=== PATIENT | male | born 1965 | race Caucasian/White ===

== ENCOUNTER 2017-07-23 18:25 | Emergency (ER) | payer OTHER ==
[2017-07-23] MEDS ORDERED: Sodium Chloride 0.9% 1,000 ML ONE (18:54)
[2017-07-23] MEDS ORDERED: Fentanyl 100 MCG/2 ML VIAL ONE (19:11)
[2017-07-23 19:20] LABS: #Basophils 0.1 thou/uL (0.0-0.2); #Eosinphils 0.1 thou/uL (0.0-0.7); #Lymphocytes 1.8 thou/uL (1.20-3.40); #Monocytes 0.6 thou/uL (0.11-0.59); #Neutrophils 2.7 thou/uL (1.40-6.50); %Basophils 2.5 % (0.0-1.0); %Eosinophils 1.4 % (0.0-10.0); %Lymphocytes 34.1 % (21.0-51.0); %Monocytes 10.6 % (0.0-10.0); %Neutrophils 51.4 % (42.0-75.0); Hemoglobin 13.4 g/dL (14.0-18.0); Mean Corpuscular HGB CONC 32.9 g/dL (32.0-36.0); Mean Corpuscular Hemoglobin 32.7 pg (27.0-31.0); Mean Corpuscular Volume 99.5 fl (80.0-94.0); Mean Platelet Volume 9.9 fL (7.4-10.4); Platelet Count 154 thou/uL (130-400); RBC Distribution Width 13.3 % (11.5-14.5); White Blood Cell (WBC) Count 5.2 thou/uL (4.8-10.8)
[2017-07-23 19:29] LABS: CKMB 1.2 ng/mL (0-6.6); Troponin I Less than 0.010 ng/mL (< 0.028)
[2017-07-23 19:30] LABS: ALT (SGPT) 9 U/L (8-55); AST (SGOT) 13 U/L (5-34); Albumin 3.8 g/dL (3.5-5.0); Alkaline Phosphatase 69 U/L (40-150); Anion Gap 11 mmol/L (10-20); BUN (Urea Nitrogen) 10 mg/dL (8.4-25.7); Bilirubin, Total 0.2 mg/dL (0.2-1.2); Calc. Creatinine Clearance 0 mL/min (70-130); Calcium 8.6 mg/dL (7.8-10.44); Carbon Dioxide 25 mmol/L (22-29); Chloride 104 mmol/L (98-107); Estimated GFR-MDRD Greater than 90; Globulin 2.6 g/dL (2.4-3.5); Glucose 104 mg/dL (70-105); Potassium 4.2 mmol/L (3.5-5.1); Protein, Total 6.4 g/dL (6.0-8.3); Sodium 136 mmol/L (136-145)
--- NOTE | 2017-07-23 19:52 | RAD ---
RADIOGRAPH CHEST 2 VIEWS: 07/23/17 HISTORY: 50-year-old male with dyspnea. FINDINGS: There is hyperinflation of the lungs, consistent with COPD. There is no evidence of air space densi ty, pneumothorax, or pulmonary edema. There is no cardiomegaly or pleural effusion. IMPRESSION: 1) No acute cardiopulmonary findings. 2) Emphysema. [email or web address] [] POS: [facility]
[2017-07-23] MEDS ORDERED: Doxycycline 100 MG CAP ONE (20:06)
[2017-07-23] MEDS ORDERED: predniSONE 20 MG TAB ONE (20:06)
== END 2017-07-23 20:18 | disposition home or self-care (01) ==
LOC: NAV ERS 18:25
DX: J44.1 Chronic obstructive pulmonary disease with (acute) exacerbation (principal); I69.359 Hemiplegia and hemiparesis following cerebral infarction affecting unspecified side; I10 Essential (primary) hypertension; F41.9 Anxiety disorder, unspecified; F31.9 Bipolar disorder, unspecified; F25.9 Schizoaffective disorder, unspecified; F17.210 Nicotine dependence, cigarettes, uncomplicated; Z79.899 Other long term (current) drug therapy
CPT/HCPCS: 71020; 80053; 82553; 83605; 83880; 84484; 85025; 93005; 94640; 94760; 96361; 96374; J3010; J7050; J7506; J7620

== ENCOUNTER → 2017-08-25 | Emergency (ER) | payer OTHER ==
[~2017-08-25] MED LIST: AMOXicillin 250 MG CAP ONE; Acetaminophen/Codeine 30-300mg Tablet ONE
== END ==
LOC: NAV ERS 09:43
DX: K02.9 Dental caries, unspecified (principal); I10 Essential (primary) hypertension; G40.909 Epilepsy, unspecified, not intractable, without status epilepticus; J44.9 Chronic obstructive pulmonary disease, unspecified; F17.210 Nicotine dependence, cigarettes, uncomplicated; Z79.899 Other long term (current) drug therapy
CPT/HCPCS: 99282

== ENCOUNTER 2017-10-27 13:36 | Emergency (ER) | payer OTHER ==
[2017-10-27] MEDS ORDERED: Ibuprofen 200 MG TAB ONE (13:59)
== END 2017-10-27 14:10 | disposition home or self-care (01) ==
LOC: NAV ERS 13:36
DX: K02.9 Dental caries, unspecified (principal); I10 Essential (primary) hypertension; J44.9 Chronic obstructive pulmonary disease, unspecified; G40.909 Epilepsy, unspecified, not intractable, without status epilepticus; F17.210 Nicotine dependence, cigarettes, uncomplicated; Z79.899 Other long term (current) drug therapy
CPT/HCPCS: 99282

== ENCOUNTER 2018-01-19 16:14 | Emergency (ER) | payer OTHER ==
[2018-01-19] MEDS ORDERED: methylPREDNISolone Sod Succ/PF 125 MG/2 ML VIAL ONE (16:59)
--- NOTE | 2018-01-19 17:04 | RAD ---
SINGLE VIEW OF THE CHEST: 01/19/18 COMPARISON: 12/22/17 HISTORY: Shortness of breath since Wednesday. Chest pain. FINDINGS: Single view of the chest shows a normal sized cardiomediastinal silhouette. There is no evidence of c onsolidation, mass, or pleural effusion. The bones are unremarkable. IMPRESSION: No evidence of acute cardiopulmonary disease. POS: [facility]
== END 2018-01-19 17:25 | disposition home or self-care (01) ==
LOC: NAV ERS 16:14
DX: J44.1 Chronic obstructive pulmonary disease with (acute) exacerbation (principal); I10 Essential (primary) hypertension; G40.909 Epilepsy, unspecified, not intractable, without status epilepticus; F17.210 Nicotine dependence, cigarettes, uncomplicated; J44.9 Chronic obstructive pulmonary disease, unspecified; Z79.891 Long term (current) use of opiate analgesic; Z79.899 Other long term (current) drug therapy
CPT/HCPCS: 71045; 96372; J2930; J7620

== ENCOUNTER 2018-02-17 12:09 | Emergency (ER) | payer OTHER ==
[2018-02-17 12:45] LABS: #Basophils 0.1 thou/uL (0.0-0.2); #Eosinphils 0.3 thou/uL (0.0-0.7); #Lymphocytes 1.6 thou/uL (1.20-3.40); #Monocytes 0.4 thou/uL (0.11-0.59); #Neutrophils 1.6 thou/uL (1.40-6.50); %Basophils 1.7 % (0.0-1.0); %Eosinophils 8.4 % (0.0-10.0); %Lymphocytes 39.2 % (21.0-51.0); %Monocytes 10.3 % (0.0-10.0); %Neutrophils 40.4 % (42.0-75.0); Hemoglobin 13.8 g/dL (14.0-18.0); Mean Corpuscular HGB CONC 32.6 g/dL (32.0-36.0); Mean Platelet Volume 7.8 fL (7.4-10.4); Platelet Count 211 thou/uL (130-400); RBC Distribution Width 13.3 % (11.5-14.5); Red Blood Cell (RBC) Count 4.44 mill/uL (4.70-6.10)
[2018-02-17 12:58] LABS: ALT (SGPT) 14 U/L (8-55); AST (SGOT) 13 U/L (5-34); Albumin 3.8 g/dL (3.5-5.0); Alkaline Phosphatase 88 U/L (40-150); Anion Gap 15 mmol/L (10-20); BUN (Urea Nitrogen) 7 mg/dL (8.4-25.7); Bilirubin, Total 0.3 mg/dL (0.2-1.2); Calc. Creatinine Clearance 0 mL/min (70-130); Calcium 8.7 mg/dL (7.8-10.44); Carbon Dioxide 24 mmol/L (22-29); Chloride 102 mmol/L (98-107); Estimated GFR-MDRD 89; Globulin 2.5 g/dL (2.4-3.5); Glucose 119 mg/dL (70-105); Potassium 4.6 mmol/L (3.5-5.1); Protein, Total 6.3 g/dL (6.0-8.3); Sodium 136 mmol/L (136-145)
[2018-02-17] MEDS ORDERED: methylPREDNISolone Sod Succ/PF 125 MG/2 ML VIAL ONE (13:16)
--- NOTE | 2018-02-17 13:20 | RAD ---
CHEST 1 VIEW: HISTORY: Dyspnea. Cough. COMPARISON: 01/19/18. FINDINGS: Cardiac silhouette is magnified by projection. Lungs are hyperinflated. Mediastinum midline with ao rtic calcification. Calcified granulomata are consistent with healed granulomatous disease. No loba r consolidation or evidence of pneumothorax. IMPRESSION: 1. Chronic obstructive pulmonary disease. 2. Atherosclerosis. POS: [facility]
== END 2018-02-17 13:33 | disposition home or self-care (01) ==
LOC: NAV ERS 12:09
DX: J44.1 Chronic obstructive pulmonary disease with (acute) exacerbation (principal); I10 Essential (primary) hypertension; F17.210 Nicotine dependence, cigarettes, uncomplicated; Z79.899 Other long term (current) drug therapy
CPT/HCPCS: 36415; 71045; 80053; 83880; 85025; 94640; 94760; 96374; J2930; J7620

== ENCOUNTER 2018-03-19 09:17 | Emergency (ER) | payer OTHER | END 2018-03-19 10:03 | disposition home or self-care (01) | LOC: NAV ERS 09:17 | DX: J44.9 Chronic obstructive pulmonary disease, unspecified (principal); I10 Essential (primary) hypertension; G40.909 Epilepsy, unspecified, not intractable, without status epilepticus; F17.210 Nicotine dependence, cigarettes, uncomplicated; Z79.899 Other long term (current) drug therapy | CPT/HCPCS: 99283 ==

== ENCOUNTER 2018-03-30 11:29 | Emergency (ER) | payer OTHER ==
[2018-03-30] MEDS ORDERED: predniSONE 20 MG TAB ONE (11:48)
[2018-03-30 12:23] LABS: #Basophils 0.1 thou/uL (0.0-0.2); #Lymphocytes 0.9 thou/uL (1.20-3.40); #Monocytes 0.6 thou/uL (0.11-0.59); #Neutrophils 2.5 thou/uL (1.40-6.50); %Basophils 1.8 % (0.0-1.0); %Lymphocytes 22.6 % (21.0-51.0); %Monocytes 14.1 % (0.0-10.0); %Neutrophils 61.5 % (42.0-75.0); Hemoglobin 12.7 g/dL (14.0-18.0); Mean Corpuscular HGB CONC 33.3 g/dL (32.0-36.0); Mean Corpuscular Hemoglobin 31.6 pg (27.0-31.0); Mean Corpuscular Volume 94.9 fL (78.0-98.0); Mean Platelet Volume 7.5 fL (7.4-10.4); Platelet Count 192 thou/uL (130-400); RBC Distribution Width 13.5 % (11.5-14.5); Red Blood Cell (RBC) Count 4.03 mill/uL (4.70-6.10)
--- NOTE | 2018-03-30 12:24 | RAD ---
SINGLE VIEW CHEST: Date: 03/30/18 COMPARISON: 02/17/18. HISTORY: Chest pain and shortness of breath. FINDINGS: Single view of the chest shows a normal sized cardiomediastinal silhouette. There is no evidence of c onsolidation, mass, or pleural effusion. The bones are unremarkable. IMPRESSION: No evidence of acute cardiopulmonary disease. POS: [facility]
[2018-03-30 12:38] LABS: ALT (SGPT) 14 U/L (8-55); AST (SGOT) 15 U/L (5-34); Albumin 3.6 g/dL (3.5-5.0); Alkaline Phosphatase 65 U/L (40-150); Anion Gap 12 mmol/L (10-20); BUN (Urea Nitrogen) 8 mg/dL (8.4-25.7); Bilirubin, Total 0.1 mg/dL (0.2-1.2); Calc. Creatinine Clearance 0 mL/min (70-130); Calcium 8.4 mg/dL (7.8-10.44); Carbon Dioxide 29 mmol/L (22-29); Chloride 103 mmol/L (98-107); Estimated GFR-MDRD Greater than 90; Globulin 2.2 g/dL (2.4-3.5); Glucose 106 mg/dL (70-105); Potassium 4.2 mmol/L (3.5-5.1); Protein, Total 5.8 g/dL (6.0-8.3); Sodium 140 mmol/L (136-145)
[2018-03-30 12:39] LABS: Troponin I Less than 0.010 ng/mL (< 0.028)
[2018-03-30] MEDS ORDERED: Azithromycin 250 MG TAB ONE (13:01)
== END 2018-03-30 13:12 | disposition home or self-care (01) ==
LOC: NAV ERS 11:29
DX: J44.1 Chronic obstructive pulmonary disease with (acute) exacerbation (principal); I10 Essential (primary) hypertension; G40.909 Epilepsy, unspecified, not intractable, without status epilepticus; F17.210 Nicotine dependence, cigarettes, uncomplicated; Z79.899 Other long term (current) drug therapy
CPT/HCPCS: 71045; 80053; 83880; 84484; 85025; 93005; J7506; J7620

== ENCOUNTER 2018-04-21 07:53 | Emergency (ER) | payer OTHER ==
[2018-04-21 08:30] LABS: #Basophils 0.1 thou/uL (0.0-0.2); #Eosinphils 0.1 thou/uL (0.0-0.7); #Lymphocytes 1.5 thou/uL (1.20-3.40); #Monocytes 0.5 thou/uL (0.11-0.59); #Neutrophils 1.9 thou/uL (1.40-6.50); %Basophils 2.3 % (0.0-1.0); %Eosinophils 3.4 % (0.0-10.0); %Lymphocytes 35.9 % (21.0-51.0); %Monocytes 11.2 % (0.0-10.0); %Neutrophils 47.2 % (42.0-75.0); Hemoglobin 12.7 g/dL (14.0-18.0); Mean Corpuscular HGB CONC 32.2 g/dL (32.0-36.0); Mean Corpuscular Hemoglobin 31.2 pg (27.0-31.0); Mean Corpuscular Volume 97.1 fL (78.0-98.0); Platelet Count 251 thou/uL (130-400); RBC Distribution Width 13.8 % (11.5-14.5); Red Blood Cell (RBC) Count 4.07 mill/uL (4.70-6.10); White Blood Cell (WBC) Count 4.1 thou/uL (4.8-10.8)
[2018-04-21] MEDS ORDERED: methylPREDNISolone Sod Succ/PF 125 MG/2 ML VIAL ONE (08:33)
[2018-04-21 08:51] LABS: Anion Gap 12 mmol/L (10-20); BUN (Urea Nitrogen) 6 mg/dL (8.4-25.7); Calc. Creatinine Clearance 0 mL/min (70-130); Carbon Dioxide 28 mmol/L (22-29); Chloride 102 mmol/L (98-107); Estimated GFR-MDRD Greater than 90; Glucose 90 mg/dL (70-105); Potassium 4.3 mmol/L (3.5-5.1); Sodium 138 mmol/L (136-145)
[2018-04-21 08:56] LABS: CKMB 1.2 ng/mL (0-6.6); Troponin I Less than 0.010 ng/mL (< 0.028)
--- NOTE | 2018-04-21 10:04 | RAD ---
PA AND LATERAL CHEST: HISTORY: Shortness of breath, productive cough. FINDINGS: Heart size is within normal limits. There are atherosclerotic changes of the aorta. Radiographic ch anges of COPD. No acute process. IMPRESSION: Chronic obstructive pulmonary disease. No active intrathoracic disease. POS: [facility]
== END 2018-04-21 10:10 | disposition home or self-care (01) ==
LOC: NAV ERS 07:53
DX: J44.1 Chronic obstructive pulmonary disease with (acute) exacerbation (principal); I10 Essential (primary) hypertension; F17.210 Nicotine dependence, cigarettes, uncomplicated; Z79.899 Other long term (current) drug therapy
CPT/HCPCS: 71046; 80048; 82553; 83880; 84484; 85025; 93005; 94640; 94760; 96374; J2930; J7620

== ENCOUNTER 2018-05-14 07:29 | Emergency (ER) | payer OTHER ==
[2018-05-14] MEDS ORDERED: methylPREDNISolone Acetate 40 mg/ml Vial ONE (07:58)
[2018-05-14] MEDS ORDERED: Cephalexin 250 MG CAP ONE (07:58)
== END 2018-05-14 08:17 | disposition home or self-care (01) ==
LOC: NAV ERS 07:29
DX: J44.9 Chronic obstructive pulmonary disease, unspecified (principal); K04.7 Periapical abscess without sinus; K02.9 Dental caries, unspecified; I10 Essential (primary) hypertension; G40.909 Epilepsy, unspecified, not intractable, without status epilepticus; F17.210 Nicotine dependence, cigarettes, uncomplicated; Z79.899 Other long term (current) drug therapy
CPT/HCPCS: 96372; J1030; J7620

== ENCOUNTER 2018-06-18 04:27 | Emergency (ER) | payer OTHER ==
[2018-06-18] MEDS ORDERED: predniSONE 20 MG TAB ONE (04:40)
== END 2018-06-18 05:16 | disposition home or self-care (01) ==
LOC: NAV ERS 04:27
DX: J44.1 Chronic obstructive pulmonary disease with (acute) exacerbation (principal); I10 Essential (primary) hypertension; G40.909 Epilepsy, unspecified, not intractable, without status epilepticus; F17.210 Nicotine dependence, cigarettes, uncomplicated; Z79.899 Other long term (current) drug therapy
CPT/HCPCS: 94640; 94760; J7506; J7620

== ENCOUNTER 2018-06-19 21:29 | Emergency (ER) | payer OTHER ==
[2018-06-19] MEDS ORDERED: predniSONE 10 MG TAB ONE (22:07)
[2018-06-19] MEDS ORDERED: methylPREDNISolone Sod Succ/PF 125 MG/2 ML VIAL ONE (22:28)
== END 2018-06-19 23:05 | disposition home or self-care (01) ==
LOC: NAV ERS 21:29
DX: J44.1 Chronic obstructive pulmonary disease with (acute) exacerbation (principal); I10 Essential (primary) hypertension; G40.909 Epilepsy, unspecified, not intractable, without status epilepticus; F17.210 Nicotine dependence, cigarettes, uncomplicated; Z79.899 Other long term (current) drug therapy
CPT/HCPCS: 93005; 94760; 96374; 96375; J2270; J2930; J7512

== ENCOUNTER 2018-08-14 12:15 | Emergency (ER) | payer OTHER ==
[2018-08-14 13:43] LABS: #Basophils 0.1 thou/uL (0.0-0.2); #Eosinphils 0.2 thou/uL (0.0-0.7); #Lymphocytes 1.8 thou/uL (1.20-3.40); #Monocytes 0.5 thou/uL (0.11-0.59); #Neutrophils 2.9 thou/uL (1.40-6.50); %Basophils 1.6 % (0.0-1.0); %Eosinophils 3.1 % (0.0-10.0); %Lymphocytes 32.8 % (21.0-51.0); %Monocytes 9.9 % (0.0-10.0); %Neutrophils 52.6 % (42.0-75.0); Mean Corpuscular HGB CONC 32.7 g/dL (32.0-36.0); Mean Corpuscular Volume 98.1 fL (78.0-98.0); Mean Platelet Volume 7.3 fL (7.4-10.4); Platelet Count 349 thou/uL (130-400); RBC Distribution Width 12.4 % (11.5-14.5); Red Blood Cell (RBC) Count 4.36 mill/uL (4.70-6.10); White Blood Cell (WBC) Count 5.5 thou/uL (4.8-10.8)
[2018-08-14 13:55] LABS: ALT (SGPT) 15 U/L (8-55); AST (SGOT) 17 U/L (5-34); Alkaline Phosphatase 96 U/L (40-150); Anion Gap 13 mmol/L (10-20); BUN (Urea Nitrogen) 5 mg/dL (8.4-25.7); Bilirubin, Total 0.3 mg/dL (0.2-1.2); Calc. Creatinine Clearance 0 mL/min (70-130); Calcium 9.4 mg/dL (7.8-10.44); Carbon Dioxide 27 mmol/L (22-29); Chloride 105 mmol/L (98-107); Estimated GFR-MDRD Greater than 90; Globulin 2.9 g/dL (2.4-3.5); Glucose 97 mg/dL (70-105); Potassium 4.1 mmol/L (3.5-5.1); Protein, Total 6.9 g/dL (6.0-8.3); Sodium 141 mmol/L (136-145)
[2018-08-14 13:56] LABS: Troponin I 0.012 ng/mL (< 0.028)
--- NOTE | 2018-08-14 14:32 | RAD ---
PORTABLE CHEST: HISTORY: Cough. COMPARISON: 05/30/2018 exam. FINDINGS: Heart size within normal limits. There are atherosclerotic changes of the aorta. The lungs are denis r of infiltrates. Calcified granuloma is seen in the right upper lobe. IMPRESSION: No active intrathoracic disease. POS: [facility]
[2018-08-14] MEDS ORDERED: methylPREDNISolone Sod Succ/PF 125 MG/2 ML VIAL ONE (15:05)
[2018-08-14] MEDS ORDERED: Azithromycin 500 MG VIAL ONE (15:17)
[2018-08-14] MEDS ORDERED: Sodium Chloride 0.9% 250 ML 250 ML ONE (15:18)
== END 2018-08-14 16:35 | disposition home or self-care (01) ==
LOC: NAV ERS 12:15
DX: J44.1 Chronic obstructive pulmonary disease with (acute) exacerbation (principal); G40.909 Epilepsy, unspecified, not intractable, without status epilepticus; F17.210 Nicotine dependence, cigarettes, uncomplicated
CPT/HCPCS: 36415; 71046; 80053; 83880; 84484; 85025; 93005; 96365; 96375; J0456; J2930; J7050; J7620

== ENCOUNTER 2018-09-16 03:17 | Emergency (ER) | payer OTHER ==
[2018-09-16] MEDS ORDERED: Azithromycin 250 MG TAB ONE (03:53)
[2018-09-16] MEDS ORDERED: methylPREDNISolone Sod Succ/PF 125 MG/2 ML VIAL ONE (03:53)
[2018-09-16 03:57] LABS: #Lymphocytes 1.2 thou/uL (1.20-3.40); #Monocytes 0.7 thou/uL (0.11-0.59); #Neutrophils 7.5 thou/uL (1.40-6.50); %Basophils 0.5 % (0.0-1.0); %Eosinophils 0.1 % (0.0-10.0); %Lymphocytes 12.6 % (21.0-51.0); %Monocytes 7.8 % (0.0-10.0); Hemoglobin 13.9 g/dL (14.0-18.0); Mean Corpuscular Hemoglobin 32.1 pg (27.0-31.0); Mean Corpuscular Volume 97.1 fL (78.0-98.0); Mean Platelet Volume 7.2 fL (7.4-10.4); Platelet Count 322 thou/uL (130-400); RBC Distribution Width 12.8 % (11.5-14.5); Red Blood Cell (RBC) Count 4.32 mill/uL (4.70-6.10); White Blood Cell (WBC) Count 9.5 thou/uL (4.8-10.8)
[2018-09-16 04:14] LABS: ALT (SGPT) 24 U/L (8-55); AST (SGOT) 19 U/L (5-34); Albumin 3.9 g/dL (3.5-5.0); Alkaline Phosphatase 90 U/L (40-150); Anion Gap 13 mmol/L (10-20); BUN (Urea Nitrogen) 8 mg/dL (8.4-25.7); Bilirubin, Total 0.1 mg/dL (0.2-1.2); Calc. Creatinine Clearance 0 mL/min (70-130); Calcium 9.1 mg/dL (7.8-10.44); Carbon Dioxide 25 mmol/L (22-29); Chloride 104 mmol/L (98-107); Estimated GFR-MDRD 88; Globulin 2.6 g/dL (2.4-3.5); Glucose 115 mg/dL (70-105); Potassium 3.6 mmol/L (3.5-5.1); Protein, Total 6.5 g/dL (6.0-8.3); Sodium 138 mmol/L (136-145)
--- NOTE | 2018-09-16 08:56 | RAD ---
CHEST 1 VIEW: HISTORY: Dyspnea. Followup. COMPARISON: 05/30/2018 and 08/14/2018. FINDINGS: Cardiac silhouette is magnified by projection. Pulmonary vasculature is upper limits of normal. Med iastinum is midline. Lungs remain hyperinflated. Lungs remain hyperinflated. Biapical pleural thic kening is similar in appearance to the previous exam. No lobar consolidation or evidence of pneumoth orax. IMPRESSION: Chronic obstructive pulmonary disease. Chronic-type findings appear stable. POS: [facility]
== END 2018-09-16 04:25 | disposition home or self-care (01) ==
LOC: NAV ERS 03:17
DX: J44.1 Chronic obstructive pulmonary disease with (acute) exacerbation (principal); I10 Essential (primary) hypertension; G40.909 Epilepsy, unspecified, not intractable, without status epilepticus; F17.210 Nicotine dependence, cigarettes, uncomplicated; Z79.899 Other long term (current) drug therapy
CPT/HCPCS: 36415; 71045; 80053; 83880; 84484; 85025; 93005; 94760; 96372; J2930; J7620

== ENCOUNTER 2018-10-01 05:20 | Emergency (ER) | payer OTHER ==
[2018-10-01] MEDS ORDERED: predniSONE 20 MG TAB ONE (05:50)
--- NOTE | 2018-10-01 09:48 | RAD ---
PA AND LATERAL VIEWS OF CHEST: Date: 10/01/18 HISTORY: Dyspnea. COPD. FINDINGS: Comparison made with exam of 09/16/18. The heart size is normal. The aorta is tortuous. The lungs are expanded without focal areas of consol idation, pneumothorax, or pleural effusions. Changes of COPD are again seen. Calcified granuloma in t he right lung apex is redemonstrated. IMPRESSION: No acute process. POS: [facility]
== END 2018-10-01 06:34 | disposition home or self-care (01) ==
LOC: NAV ERS 05:20
DX: J44.1 Chronic obstructive pulmonary disease with (acute) exacerbation (principal); F17.210 Nicotine dependence, cigarettes, uncomplicated; G40.909 Epilepsy, unspecified, not intractable, without status epilepticus; Z79.891 Long term (current) use of opiate analgesic; Z79.899 Other long term (current) drug therapy
CPT/HCPCS: 71046; 94640; J7506; J7620

== ENCOUNTER 2018-10-06 22:48 | Emergency (ER) | payer OTHER ==
[2018-10-06] MEDS ORDERED: methylPREDNISolone Sod Succ/PF 125 MG/2 ML VIAL ONE (23:05)
[2018-10-06 23:14] LABS: #Basophils 0.1 thou/uL (0.0-0.2); #Lymphocytes 1.8 thou/uL (1.20-3.40); #Monocytes 0.5 thou/uL (0.11-0.59); %Eosinophils 0.2 % (0.0-10.0); %Lymphocytes 33.5 % (21.0-51.0); %Monocytes 9.1 % (0.0-10.0); %Neutrophils 56.3 % (42.0-75.0); Hemoglobin 12.1 g/dL (14.0-18.0); Mean Corpuscular HGB CONC 32.1 g/dL (32.0-36.0); Mean Corpuscular Hemoglobin 31.3 pg (27.0-31.0); Mean Corpuscular Volume 97.5 fL (78.0-98.0); Mean Platelet Volume 7.8 fL (7.4-10.4); Platelet Count 273 thou/uL (130-400); RBC Distribution Width 13.2 % (11.5-14.5); Red Blood Cell (RBC) Count 3.87 mill/uL (4.70-6.10); White Blood Cell (WBC) Count 5.4 thou/uL (4.8-10.8)
--- NOTE | 2018-10-06 23:27 | RAD ---
SINGLE VIEW OF THE CHEST: 10/06/18 COMPARISON: 09/16/18 HISTORY: Shortness of breath for two days and dyspnea. FINDINGS: Single view of the chest shows a normal sized cardiomediastinal silhouette. There is no evidence of c onsolidation, mass, or pleural effusion. The bones are unremarkable. IMPRESSION: No evidence of acute cardiopulmonary disease. POS: [facility]
[2018-10-06 23:29] LABS: ALT (SGPT) 20 U/L (8-55); AST (SGOT) 16 U/L (5-34); Albumin 3.7 g/dL (3.5-5.0); Alkaline Phosphatase 65 U/L (40-150); Anion Gap 13 mmol/L (10-20); BUN (Urea Nitrogen) 12 mg/dL (8.4-25.7); Bilirubin, Total 0.2 mg/dL (0.2-1.2); Calc. Creatinine Clearance 0 mL/min (70-130); Calcium 8.6 mg/dL (7.8-10.44); Carbon Dioxide 24 mmol/L (22-29); Chloride 104 mmol/L (98-107); Estimated GFR-MDRD Greater than 90; Globulin 2.3 g/dL (2.4-3.5); Glucose 136 mg/dL (70-105); Magnesium 2.3 mg/dL (1.6-2.6); Potassium 3.3 mmol/L (3.5-5.1); Sodium 138 mmol/L (136-145)
== END 2018-10-07 00:20 | disposition home or self-care (01) ==
LOC: NAV ERS 22:48
DX: J44.1 Chronic obstructive pulmonary disease with (acute) exacerbation (principal); I10 Essential (primary) hypertension; G40.909 Epilepsy, unspecified, not intractable, without status epilepticus; F17.210 Nicotine dependence, cigarettes, uncomplicated; Z79.899 Other long term (current) drug therapy
CPT/HCPCS: 71045; 80053; 83605; 83735; 83880; 84484; 85025; 93005; 94640; 94760; 96374; J2930; J7620

== ENCOUNTER 2018-10-11 09:30 | Emergency (ER) | payer OTHER | END 2018-10-11 10:11 | disposition home or self-care (01) | LOC: NAV ERS 09:30 | DX: J44.9 Chronic obstructive pulmonary disease, unspecified (principal); B37.0 Candidal stomatitis; I10 Essential (primary) hypertension; G40.909 Epilepsy, unspecified, not intractable, without status epilepticus; F17.210 Nicotine dependence, cigarettes, uncomplicated; Z79.899 Other long term (current) drug therapy | CPT/HCPCS: 99284 ==

== ENCOUNTER 2018-10-16 08:15 | Emergency (ER) | payer OTHER ==
[2018-10-16] MEDS ORDERED: methylPREDNISolone Sod Succ/PF 125 MG/2 ML VIAL ONE (08:47)
[2018-10-16 09:46] LABS: #Basophils 0.1 thou/uL (0.0-0.2); #Eosinphils 0.1 thou/uL (0.0-0.7); #Lymphocytes 2.5 thou/uL (1.20-3.40); #Monocytes 0.8 thou/uL (0.11-0.59); #Neutrophils 4.7 thou/uL (1.40-6.50); %Eosinophils 0.7 % (0.0-10.0); %Lymphocytes 30.8 % (21.0-51.0); %Monocytes 9.3 % (0.0-10.0); %Neutrophils 58.2 % (42.0-75.0); Hemoglobin 13.6 g/dL (14.0-18.0); Mean Corpuscular HGB CONC 33.1 g/dL (32.0-36.0); Mean Corpuscular Hemoglobin 32.2 pg (27.0-31.0); Mean Corpuscular Volume 97.3 fL (78.0-98.0); Mean Platelet Volume 6.4 fL (7.4-10.4); Platelet Count 331 thou/uL (130-400); RBC Distribution Width 14.5 % (11.5-14.5); Red Blood Cell (RBC) Count 4.21 mill/uL (4.70-6.10); White Blood Cell (WBC) Count 8.1 thou/uL (4.8-10.8)
[2018-10-16 09:58] LABS: Anion Gap 13 mmol/L (10-20); BUN (Urea Nitrogen) 7 mg/dL (8.4-25.7); Calc. Creatinine Clearance 0 mL/min (70-130); Calcium 8.8 mg/dL (7.8-10.44); Carbon Dioxide 26 mmol/L (22-29); Chloride 103 mmol/L (98-107); Estimated GFR-MDRD Greater than 90; Glucose 103 mg/dL (70-105); Potassium 4.1 mmol/L (3.5-5.1); Sodium 138 mmol/L (136-145)
--- NOTE | 2018-10-16 10:18 | RAD ---
CHEST 2 VIEWS: Date: 10/16/18 HISTORY: Dyspnea. COMPARISON: Radiograph dated 10/06/18. FINDINGS: There is a punctate nodule right upper lobe, likely calcified granuloma. No focal air space consolida tion, pneumothorax, or effusion. IMPRESSION: No acute intrathoracic abnormality. POS: [facility]
== END 2018-10-16 10:39 | disposition home or self-care (01) ==
LOC: NAV ERS 08:15
DX: J44.1 Chronic obstructive pulmonary disease with (acute) exacerbation (principal); I10 Essential (primary) hypertension; G40.909 Epilepsy, unspecified, not intractable, without status epilepticus; F17.210 Nicotine dependence, cigarettes, uncomplicated; Z79.899 Other long term (current) drug therapy; Z79.51 Long term (current) use of inhaled steroids; Z79.891 Long term (current) use of opiate analgesic
CPT/HCPCS: 71046; 80048; 84484; 85025; 85379; 93005; 94640; 94760; 96372; J2930; J7620

== ENCOUNTER 2019-07-31 07:50 | Emergency (ER) | payer OTHER ==
[2019-07-31 08:04] LABS: #Basophils 0.1 thou/uL (0.0-0.2); #Lymphocytes 3.3 thou/uL (1.20-3.40); #Monocytes 1.2 thou/uL (0.11-0.59); #Neutrophils 6.9 thou/uL (1.40-6.50); %Basophils 0.8 % (0.0-1.0); %Eosinophils 0.3 % (0.0-10.0); %Lymphocytes 28.8 % (21.0-51.0); %Monocytes 10.5 % (0.0-10.0); %Neutrophils 59.6 % (42.0-75.0); Hemoglobin 11.8 g/dL (14.0-18.0); Mean Corpuscular HGB CONC 32.1 g/dL (32.0-36.0); Mean Corpuscular Volume 99.8 fL (78.0-98.0); Mean Platelet Volume 6.2 fL (7.4-10.4); Platelet Count 303 thou/uL (130-400); RBC Distribution Width 14.1 % (11.5-14.5); White Blood Cell (WBC) Count 11.5 thou/uL (4.8-10.8)
[2019-07-31] MEDS ORDERED: Albuterol Sulfate 2.5 mg/0.5 ml Neb ONE (08:14)
[2019-07-31 08:23] LABS: ALT (SGPT) 20 U/L (8-55); AST (SGOT) 16 U/L (5-34); Albumin 3.7 g/dL (3.5-5.0); Alkaline Phosphatase 61 U/L (40-110); Anion Gap 17 mmol/L (10-20); BUN (Urea Nitrogen) 11 mg/dL (8.4-25.7); Bilirubin, Total 0.2 mg/dL (0.2-1.2); CK (CPK) 53 U/L (30-200); Calc. Creatinine Clearance 0 mL/min (70-130); Calcium 8.8 mg/dL (7.8-10.44); Carbon Dioxide 25 mmol/L (22-29); Chloride 101 mmol/L (98-107); Estimated GFR-MDRD Greater than 90; Globulin 2.3 g/dL (2.4-3.5); Glucose 98 mg/dL (70-105); Magnesium 1.7 mg/dL (1.6-2.6); Potassium 3.7 mmol/L (3.5-5.1); Sodium 139 mmol/L (136-145)
[2019-07-31] MEDS ORDERED: Aspirin Chewable 81 MG TAB ONE (08:30)
[2019-07-31] MEDS ORDERED: cefTRIAXone\\ROCEPHIN 2 GM VIAL ONE (08:37)
[2019-07-31] MEDS ORDERED: Sodium Chloride 0.9% 100 ML ONE (08:37)
[2019-07-31] MEDS ORDERED: Azithromycin 500 MG VIAL ONE (08:37)
[2019-07-31] MEDS ORDERED: Sodium Chloride 0.9% 250 ML 250 ML ONE (08:38)
[2019-07-31 08:54] LABS: Base Excess-Venous 2.3 mmol/L (-2.0 to 3.0); CO2 Tension (PvCO2) 41.7 mmHg (40.0-50.0); Calcium, Ionized 1.11 mmol/L (See Comments:); Chloride 102 mmol/L (98-107); Hemoglobin - Calc 11.7 g/dL (14.0-18.0); Potassium 3.6 mmol/L (3.5-5.1); Sodium 138 mmol/L (138-145); T. Carbon Dioxide 28.3 mmol/L (22.0-28.0); vO2 Saturation-calc 98.5 % (60.0-85.0)
--- NOTE | 2019-07-31 09:39 | RAD ---
1 VIEW CHEST: Date: 07/31/19 COMPARISON: 05/20/19. HISTORY: Diminished lung sounds. FINDINGS: Atherosclerosis of the aortic knob. Normal cardiac silhouette. Pulmonary vessels are within normal li mits. Costophrenic angles are clear. Hyperinflation. Increased interstitial opacities may represent e richy or infiltrate. No consolidation or mass. No pleural effusion or pneumothorax. IMPRESSION: 1. Atherosclerosis. 2. Increased interstitial opacities which may represent edema or infiltrate. Continued surveillance is recommended. POS: [facility]
== END 2019-07-31 09:04 | disposition short-term general hospital (02) ==
LOC: NAV ERS 07:50
DX: J44.1 Chronic obstructive pulmonary disease with (acute) exacerbation (principal); I10 Essential (primary) hypertension; G40.909 Epilepsy, unspecified, not intractable, without status epilepticus; F17.210 Nicotine dependence, cigarettes, uncomplicated; Z79.899 Other long term (current) drug therapy; Z79.51 Long term (current) use of inhaled steroids
CPT/HCPCS: 71045; 80053; 82330; 82550; 82803; 83605; 83735; 84484; 85025; 87040; 93005; 94640; 94660; 96365; 96374; J0456; J0696; J3490; J7050; J7611

== ENCOUNTER 2021-03-02 21:04 | Emergency (ER) | payer OTHER ==
[2021-03-02] MEDS ORDERED: Bacitracin 1 PK ONE ×3 (21:36→21:52)
[2021-03-02] MEDS ORDERED: Morphine 4 MG/ML VIAL ONE (21:36)
== END 2021-03-02 22:09 | disposition home or self-care (01) ==
LOC: NAV ERS 21:04
DX: T20.35XA Burn of third degree of scalp [any part], initial encounter (principal); T31.0 Burns involving less than 10% of body surface; I10 Essential (primary) hypertension; J44.9 Chronic obstructive pulmonary disease, unspecified; F17.210 Nicotine dependence, cigarettes, uncomplicated; Z79.51 Long term (current) use of inhaled steroids; Z79.899 Other long term (current) drug therapy
CPT/HCPCS: 96372; 99283; J2270

== ENCOUNTER 2021-07-11 23:49 | Emergency (ER) | payer OTHER ==
[2021-07-12] MEDS ORDERED: Sulfameth/Trimethoprim DS 800-160mg TAB ONE (00:14)
[2021-07-12] MEDS ORDERED: Ketorolac Tromethamine 60 MG/2 ML VIAL ONE (00:14)
== END 2021-07-12 00:40 | disposition home or self-care (01) ==
LOC: NAV ERS 23:49
DX: L03.114 Cellulitis of left upper limb (principal); M70.32 Other bursitis of elbow, left elbow; I10 Essential (primary) hypertension; G40.909 Epilepsy, unspecified, not intractable, without status epilepticus; J44.9 Chronic obstructive pulmonary disease, unspecified; Z79.52 Long term (current) use of systemic steroids; Z79.899 Other long term (current) drug therapy
CPT/HCPCS: 96372; 99283; J1885

== ENCOUNTER 2021-07-13 19:29 | Emergency (ER) | payer OTHER ==
[2021-07-13] MEDS ORDERED: Ketorolac Tromethamine 60 MG/2 ML VIAL ONE (20:49)
== END 2021-07-13 21:00 | disposition home or self-care (01) ==
LOC: NAV ERS 19:29
DX: S43.401A Unspecified sprain of right shoulder joint, initial encounter (principal); I10 Essential (primary) hypertension; G40.909 Epilepsy, unspecified, not intractable, without status epilepticus; F17.210 Nicotine dependence, cigarettes, uncomplicated; J44.9 Chronic obstructive pulmonary disease, unspecified; Z87.01 Personal history of pneumonia (recurrent); Z79.899 Other long term (current) drug therapy; X50.1XXA Overexertion from prolonged static or awkward postures, initial encounter
CPT/HCPCS: 96372; J1885

== ENCOUNTER 2021-07-17 18:47 | Emergency (ER) | payer OTHER ==
[2021-07-17] MEDS ORDERED: Morphine 4 MG/ML VIAL ONE (19:36)
[2021-07-17 20:01] LABS: #Lymphocytes 1.3 thou/uL (1.20-3.40); #Monocytes 0.6 thou/uL (0.11-0.59); #Neutrophils 3.1 thou/uL (1.40-6.50); %Eosinophils 0.3 % (0.0-10.0); %Lymphocytes 25.2 % (21.0-51.0); %Monocytes 10.9 % (0.0-10.0); %Neutrophils 62.7 % (42.0-75.0); Hemoglobin 11.1 g/dL (14.0-18.0); Mean Corpuscular HGB CONC 30.9 g/dL (32.0-36.0); Mean Corpuscular Hemoglobin 32.7 pg (27.0-31.0); Mean Platelet Volume 7.8 fL (7.4-10.4); Platelet Count 315 thou/uL (130-400); RBC Distribution Width 14.1 % (11.5-14.5)
[2021-07-17 20:09] LABS: Anion Gap 12 mmol/L (10-20); BUN (Urea Nitrogen) 13 mg/dL (8.4-25.7); Calc. Creatinine Clearance 0 mL/min (70-130); Calcium 8.8 mg/dL (7.8-10.44); Carbon Dioxide 29 mmol/L (22-29); Chloride 96 mmol/L (98-107); Glucose 113 mg/dL (70-105); Potassium 5.2 mmol/L (3.5-5.1); Sodium 132 mmol/L (136-145)
[2021-07-17] MEDS ORDERED: Lidocaine 1% w/Epinephrine 1:100K 20 ML VIAL ONE (20:30)
== END 2021-07-17 20:45 | disposition home or self-care (01) ==
LOC: NAV ERS 18:47
DX: M70.22 Olecranon bursitis, left elbow (principal); I10 Essential (primary) hypertension; G40.909 Epilepsy, unspecified, not intractable, without status epilepticus; J44.9 Chronic obstructive pulmonary disease, unspecified; F17.210 Nicotine dependence, cigarettes, uncomplicated; Z87.01 Personal history of pneumonia (recurrent); Z79.899 Other long term (current) drug therapy
CPT/HCPCS: 80048; 85025; 86140; 96372; J2270

== ENCOUNTER 2022-04-21 09:19 | Emergency (ER) | payer OTHER ==
[2022-04-21] MEDS ORDERED: Sodium Chloride 0.9% 2,000 ML ONE (09:51)
[2022-04-21 10:52] LABS: ALT (SGPT) 13 U/L (8-55); AST (SGOT) 13 U/L (5-34); Albumin 3.8 g/dL (3.5-5.0); Alkaline Phosphatase 55 U/L (40-110); Anion Gap 18 mmol/L (10-20); BUN (Urea Nitrogen) 10 mg/dL (8.4-25.7); Bilirubin, Total 0.2 mg/dL (0.2-1.2); Calc. Creatinine Clearance 0 mL/min (70-130); Calcium 8.6 mg/dL (7.8-10.44); Carbon Dioxide 26 mmol/L (22-29); Chloride 98 mmol/L (98-107); Estimated GFR 106; Globulin 2.3 g/dL (2.4-3.5); Glucose 162 mg/dL (70-105); Potassium 3.8 mmol/L (3.5-5.1); Protein, Total 6.1 g/dL (6.0-8.3); Sodium 138 mmol/L (136-145)
[2022-04-21 11:02] LABS: #Basophils 0.1 thou/uL (0.0-0.2); #Lymphocytes 1.6 thou/uL (1.20-3.40); #Monocytes 0.4 thou/uL (0.11-0.59); #Neutrophils 3.5 thou/uL (1.40-6.50); %Basophils 1.3 % (0.0-1.0); %Eosinophils 0.4 % (0.0-10.0); %Lymphocytes 28.7 % (21.0-51.0); %Neutrophils 62.6 % (42.0-75.0); Hemoglobin 10.9 g/dL (14.0-18.0); Mean Corpuscular HGB CONC 31.1 g/dL (32.0-36.0); Mean Corpuscular Hemoglobin 32.5 pg (27.0-31.0); Mean Platelet Volume 9.4 fL (7.4-10.4); Platelet Count 53 thou/uL (130-400); RBC Distribution Width 13.8 % (11.5-14.5); Red Blood Cell (RBC) Count 3.36 mill/uL (4.70-6.10); White Blood Cell (WBC) Count 5.6 thou/uL (4.8-10.8)
== END 2022-04-21 11:31 | disposition home or self-care (01) ==
LOC: NAV ERS 09:19
DX: R05.1 Acute cough (principal); I10 Essential (primary) hypertension; J44.9 Chronic obstructive pulmonary disease, unspecified; F17.210 Nicotine dependence, cigarettes, uncomplicated; Z79.899 Other long term (current) drug therapy
CPT/HCPCS: 71045; 80053; 83605; 85025; 87040; 93005; 96360; J7050

== ENCOUNTER 2022-04-28 07:02 | Emergency (ER) | payer OTHER ==
[2022-04-28] MEDS ORDERED: Sodium Chloride 0.9% 1,000 ML ONE ×2 (07:57→08:19)
[2022-04-28 08:12] LABS: ALT (SGPT) 16 U/L (8-55); AST (SGOT) 13 U/L (5-34); Albumin 3.3 g/dL (3.5-5.0); Alkaline Phosphatase 56 U/L (40-110); Anion Gap 16 mmol/L (10-20); BUN (Urea Nitrogen) 13 mg/dL (8.4-25.7); Bilirubin, Total 0.1 mg/dL (0.2-1.2); Calc. Creatinine Clearance 0 mL/min (70-130); Calcium 8.2 mg/dL (7.8-10.44); Carbon Dioxide 30 mmol/L (22-29); Chloride 99 mmol/L (98-107); Estimated GFR 110; Globulin 2.4 g/dL (2.4-3.5); Glucose 149 mg/dL (70-105); Potassium 4.5 mmol/L (3.5-5.1); Protein, Total 5.7 g/dL (6.0-8.3); Sodium 140 mmol/L (136-145)
[2022-04-28 08:30] LABS: %Lymphocytes 11.8 % (21.0-51.0); %Monocytes 5.1 % (0.0-10.0); %Neutrophils 82.2 % (42.0-75.0); Hemoglobin 10.3 g/dL (14.0-18.0); Manual Diff?? NO; Mean Corpuscular HGB CONC 30.1 g/dL (32.0-36.0); Mean Corpuscular Hemoglobin 32.1 pg (27.0-31.0); Mean Platelet Volume 8.3 fL (7.4-10.4); Platelet Count 193 thou/uL (130-400); RBC Distribution Width 13.9 % (11.5-14.5); Red Blood Cell (RBC) Count 3.21 mill/uL (4.70-6.10); White Blood Cell (WBC) Count 4.3 thou/uL (4.8-10.8)
[2022-04-28 08:32] LABS: #Lymphocytes 0.5 thou/uL (1.20-3.40); #Monocytes 0.2 thou/uL (0.11-0.59); #Neutrophils 3.5 thou/uL (1.40-6.50); %Basophils 0.8 % (0.0-1.0); %Eosinophils 0.2 % (0.0-10.0)
[2022-04-28 08:52] LABS: SARS-CoV-2 NAA Rapid Test Not Detected (NotDetected)
[2022-04-28] MEDS ORDERED: methylPREDNISolone Sod Succ/PF 125 MG/2 ML VIAL ONE (10:26)
== END 2022-04-28 11:40 | disposition home or self-care (01) ==
LOC: NAV ERS 07:02
DX: J44.1 Chronic obstructive pulmonary disease with (acute) exacerbation (principal); Z20.822 Contact with and (suspected) exposure to COVID-19; I10 Essential (primary) hypertension; F17.210 Nicotine dependence, cigarettes, uncomplicated; Z79.899 Other long term (current) drug therapy
CPT/HCPCS: 71045; 80053; 83605; 83880; 84484; 85025; 87804; 94760; 96361; 96374; J2930; J7050; J7620; U0002